=== PATIENT | female | born 1975 | race Caucasian/White ===

== ENCOUNTER 2020-03-20 21:06 | Emergency (ER) | payer OTHER ==
[~2020-03-20] VITALS: Ht 185.4 cm; Wt 62.6 kg
[2020-03-20 21:17] VITALS: BP 112/43
--- NOTE | 2020-03-20 21:25 | NUR ---
PT AMBULATORY TO ROOM WITH CRUTCHES.
== END 2020-03-20 23:20 | disposition home or self-care (01) ==
LOC: ED 22:06
DX: S82.852A Displaced trimalleolar fracture of left lower leg, initial encounter for closed fracture (principal); X50.0XXA Overexertion from strenuous movement or load, initial encounter; Y93.89 Activity, other specified; Y92.89 Other specified places as the place of occurrence of the external cause; Y99.8 Other external cause status
CPT/HCPCS: 29515; 99283